=== PATIENT | male | born 1985 | race American Indian/Alaskan Native ===

== ENCOUNTER 2019-09-25 10:05 | Emergency (ER) | payer SELFPAY ==
--- NOTE | 2019-09-25 11:37 | Emergency Department Report ---
Chief Complaint: Upper Respiratory Infection Stated Complaint: FLU SYM Time Seen by Provider: 09/25/19 11:13 - HPI History of Present Illness: Mr. Rose is a 34-year-old male he is complaining of hoarseness dry cough and feeling congested 2 days. Denies fever chills body aches no nausea no vomiting no diarrhea. She also denies any past medical history. - ROS Review of Systems: Patient complaining of dry cough congestion and hoarseness All other symptoms reviewed and are negative He denies fever or chills body aches chest pain shortness of breath no nausea no vomiting no diarrhea no abdominal pain. - Exam Vital Signs: Vital Signs 09/25/19 10:20 Temperature 98.7 F Pulse Rate 111 H Respiratory 18 Rate Blood Pressure 147/80 O2 Sat by Pulse 99 Oximetry MSE screening note: Focused history and physical exam performed. Due to findings the following was ordered: 34-year-old male with 2 day complaint of dry cough and nasal congestion hoarse, he states I lost my voice. Patient awake alert and oriented 3 his nose with clear nasal discharge. TMs are clear bilaterally , there is no erythema no tonsillar swelling,or exudate, redness Uvula is midline. He controls his secretions without any difficulty respirations are easy and unlabored his heart sounds are regular no murmurs appreciated his lungs are clear bilaterally ED Medical Decision Making - Medical Decision Making 34-year-old male with nasal congestion hoarseness and a dry cough 2 days. On examination patient is well-appearing his lung sounds, his ears within normal limits his throat no acute findings patient only has clear nasal discharge patient appears to have common cold virus. He is referred out to follow-up with his primary care doctor [facility] urgent care or Dr. Vincenzo Fowler. ED Disposition for MSE Clinical Impression: Common cold virus, Laryngitis Disposition: Z- MED SCREENING EXAM-LEFT Is pt being admited?: No Does the pt Need Aspirin: No Condition: Stable Instructions: Cold Symptoms (ED), Laryngitis (ED) Additional Instructions: Warm salt water gargles follow-up with your primary care doctor or [facility] Referrals: VINCENZO FOWLER MD [Staff Physician] - 3-5 Days Time of Disposition: 11:40
[2019-09-25 11:57] VITALS: BP 140/80
== END 2019-09-25 11:47 | disposition left against medical advice (07) ==
LOC: ED 10:05
DX: J04.0 Acute laryngitis (principal); J00 Acute nasopharyngitis [common cold]
CPT/HCPCS: 99282